=== PATIENT | female | born 1945 | race Caucasian/White ===

== ENCOUNTER → 2016-05-14 | Day surgery (SDC) | payer BC, MEDICARE ==
[~2016-05-14] VITALS: Ht 161.3 cm; Wt 86.3 kg
[~2016-05-14] MED LIST: AVAPRO300 MG PO; COLACE100 MG PO; CPAP INH; CRESTOR10 MG PO; DILAUDID 2MG(HYD2 MG PO; HYDROCHLOROTH12.5 MG PO; KLONOPIN1 MG PO; LEVOTHROID(SYN75 MCG PO; MIRALAX17 GM PO; NORVASC2.5 MG PO; OSCAL + D500 MG PO; PROTONIX20 MG PO; RITALIN SR 20MG20 MG PO; THERA-VITE W/ B1 TAB PO; TYLENOL EXTRA500 MG PO; ULTRAM50 MG PO; VALIUM5 MG PO; XARELTO10 MG PO; ZOLOFT100 MG PO
== END ==
LOC: GPOC 05-10 15:00 → GEND 08:29 → GPOC 09:00
PROC: 0DB68ZX Excision of Stomach, Via Natural or Artificial Opening Endoscopic, Diagnostic (ICD-10-PCS; principal; 2016-05-14)
DX: R10.13 Epigastric pain (principal); R11.0 Nausea; I10 Essential (primary) hypertension; F33.9 Major depressive disorder, recurrent, unspecified; F15.10 Other stimulant abuse, uncomplicated; K31.9 Disease of stomach and duodenum, unspecified
CPT/HCPCS: J2001; J7030

== ENCOUNTER 2016-07-02 08:00 | Inpatient (IN) | payer BC, MEDICARE ==
[~2016-07-02] VITALS: Ht 161.3 cm; Wt 88.7 kg
--- NOTE | ~2016-07-02 | OR ---
PATIENT'S NAME: NANDO KELSEY [facility] AGE: 71 Y [address] ROOM: [place] [address] LOCATION: [facility] ADMIT DATE: 07/15/2016 OR/Procedure Report DISCHARGE DATE: FAMILY PHYSICIAN: DARIEL JIMENEZ MD ATTENDING PHYSICIAN: LEXIS HAWKINS SURGEON: Lexis Hawkins MD LINK KNITTING MACHINE OPERATOR: Joey Ramírez PA-C and Cali Frank CST/FRUIT DRYER. DATE OF PROCEDURE: 07/15/2016 PRE-OP DIAGNOSIS: 1. Degenerative joint disease, right knee. 2. Retained hardware in right knee (ligament staple at medial femoral epicondyle). POST-OP DIAGNOSIS: 1. Degenerative joint disease, left knee. 2. Retained hardware in right knee (ligament staple at medial femoral epicondyle). OPERATION: 1. Bilateral total knee arthroplasty with computer navigation. 2. Removal of hardware (removal of a portion of ligament staple in right distal femur). ANESTHESIA: Spinal anesthesia plus bilateral femoral nerve blocks plus periarticular local anesthesia (Exparel). ESTIMATED BLOOD LOSS: Less than 10 mL (each side). DRAIN: None. SPECIMEN: None. COMPLICATIONS: None. IMPLANT SYSTEM: [place] [employer]. Size 3 posterior stabilized femoral components bilaterally. Size 3 universal modular tibial base plates bilaterally. A 13-mm size 3 X3 tibial polyethylene insert on the right. An 11 mm posterior stabilized size three X3 tibial polyethylene insert on the left. A 29-mm oval X3 patellar components bilaterally. INDICATIONS FOR SURGERY: Nando Kelsey is a 71-year-old female, who presents with PATIENT'S NAME: NANDO KELSEY [facility] AGE: 71 Y [address] ROOM: [place] [address] LOCATION: [facility] ADMIT DATE: 07/15/2016 OR/Procedure Report DISCHARGE DATE: FAMILY PHYSICIAN: DARIEL JIMENEZ MD ATTENDING PHYSICIAN: LEXIS HAWKINS advanced right knee degenerative joint disease and associated severely compromised activities of daily living. The patient has decided to proceed with bilateral knee replacement after having been thoroughly counseled regarding the associated risks, benefits, and limitations. We have specifically reviewed the risks and implications of infection, deep venous thrombosis, pulmonary embolism, mortality, neurovascular complications, blood transfusion (and associated potential for disease transmission or transfusion reaction), stiffness, instability, mechanical deterioration of the components (due to wear and or loosening), and the potential need for revision. We have also emphasized the importance of active involvement and compliance with post- operative physical therapy as a means of optimizing range of motion and functional recovery. Informed consent has been granted. We have also reviewed potential increased risks associated with bilateral (as opposed to staged) knee replacements including increased risk of requiring blood transfusion as well as the potential increased risk of mortality, deep venous thrombosis, and/or fat embolism syndrome. The patient has chosen to accept these potential increased risks. DESCRIPTION OF PROCEDURE: The patient was positioned supine after administration of anesthesia and prophylactic antibiotics. A well-padded pneumatic tourniquet was placed around both proximal thighs, and both lower extremities were prepped and draped with vigilant sterile technique. The patient's name as well as the intended procedure were confirmed with a verbal time-out involving myself, the circulating nurse, the scrub nurse, and the anesthesiologist. Attention was first focused on the right lower extremity. Examination under anesthesia demonstrated a well-healed curvilinear long medial arthrotomy scar. This was utilized to approach the knee. Care was taken to elevate the anterior skin flap in a full-thickness fashion. Non-absorbable suture was noted in the medial retinaculum. There was a moderate effusion. There were no active skin lesions or masses. There was no erythema. There was no abnormal warmth. Range of motion under anesthesia was from a 5-degree flexion contracture to 105 degrees of flexion. There was no ligamentous insufficiency. The right lower extremity was elevated and exsanguinated with an Esmarch wrap, and the pneumatic tourniquet was inflated to 300 mm. The knee was approached through a longitudinal midline incision. A medial parapatellar arthrotomy was performed and the patella was everted. Examination of the joint space demonstrated extensive non-resorbable suture material in the medial retinaculum. There was significant fibrosis of the infrapatellar fat pad. There were dense adhesions in the suprapatellar pouch as well as the medial and lateral gutters. There were also multiple non- resorbable sutures in the intercondylar notch and within the remnant of the PATIENT'S NAME: [facility] AGE: 71 Y [address] ROOM: [address] [place], [place] [address] LOCATION: [facility] ADMIT DATE: 07/15/2016 OR/Procedure Report DISCHARGE DATE: FAMILY PHYSICIAN: DARIEL JIMENEZ MD ATTENDING PHYSICIAN: LEXIS HAWKINS posterior cruciate ligament. The sutures were traced to where they penetrated through the medial aspect of the intercondylar notch in the vicinity of the posterior cruciate ligament origin. There was a 1-cm osseous fragment adherent to fibrous tissue in the suprapatellar pouch. There was full- thickness loss of articular cartilage involving 90% of the lateral facet of the patella, as well as 50% of the femoral trochlea, and a 1-cm diameter region of the medial femoral condyle. In addition, there was full-thickness loss of articular cartilage involving 60% of the lateral femoral condyle, and 90% of the lateral tibial plateau. There was a small degenerative peripheral remnant of the lateral meniscus. There was moderate inner perimeter tearing of the medial meniscus. Remnants of the menisci and cruciate ligaments were excised. The [employer] computer navigation femoral tracker was secured in place at the distal aspect of the femoral trochlea with three pins. Absence of motion between the femur and the tracking device was confirmed manually and visually. Femoral osseous landmarks were obtained in order to calibrate the computer navigation system. Landmarks included the center of rotation of the ipsilateral hip, the center- point of the distal femur, the vertical bisector of the femoral trochlea, 20 points on the medial femoral condyle articular surface, and 20 points on the lateral femoral condyle articular surface. The [employer] computer navigation system was subsequently utilized to position the distal femoral resection block such that the distal femoral resection was performed perfectly perpendicular to the femoral mechanical axis. The distal femoral resection was performed with a [employer] Precision oscillating saw. The [employer] computer navigation tibial tracker was secured in place at the anterior aspect of the tibial plateau with three points. Absence of motion between the tibia and the tracking device was confirmed manually and visually. Tibial osseous landmarks were obtained in order to calibrate the computer navigation system. Landmarks included the center-point of the tibial plateau, the sagittal bisector of the tibial plateau, 20 points on the medial tibial plateau articular surface, 20 points on the lateral tibial plateau articular surface, the medial malleolus, and the lateral malleolus. The [employer] computer navigation system was subsequently utilized to position the proximal tibial resection block such that the proximal tibial resection was performed perfectly perpendicular to the tibial mechanical axis. The proximal tibial resection was performed with a [employer] Precision oscillating saw. Perpendicularity of the tibial resection with respect to the tibial shaft axis was reconfirmed by inserting a spacer-block attached to an extramedullary guide peg. External rotation of the anterior and posterior femoral resections was set parallel to the epicondylar axis and carefully adjusted in order to create a rectangular flexion gap. The box resection was performed with a reciprocating PATIENT'S NAME: NANDO KELSEY [facility] AGE: 71 Y [address] ROOM: [address] [address] LOCATION: [facility] ADMIT DATE: 07/15/2016 OR/Procedure Report DISCHARGE DATE: FAMILY PHYSICIAN: DARIEL JIMENEZ MD ATTENDING PHYSICIAN: LEXIS HAWKINS. Anterior and posterior chamfer resections were performed with the oscillating saw. Posterior condyle osteophytes were excised with an osteotome. All other osteophytes were excised with a rongeur. Resection of all remnants of the menisci was reconfirmed. Flexion and extension gaps were confirmed to be symmetric and well balanced with a spacer-block technique. The patella resection was performed with an oscillating saw such that the composite thickness of the reconstructed patella was equivalent to the thickness of the [place] patella. Patella tracking was confirmed to be optimal. A limited lateral retinacular release was required for patellar tracking, as well as to optimize patellar tracking. All trial components were removed and all prepared osseous surfaces were thoroughly irrigated with pulsatile saline lavage and dried prior to cementing all three components in a single stage using Agr[employer] Simplex cement containing pre-mixed tobramycin. All extruded excess cement was removed. The entire joint space was thoroughly inspected and thoroughly irrigated with bacteriostatic pulsatile saline lavage to assure that there was no residual debris of any sort. Final range of motion was from full extension to 130 degrees of flexion. Patella tracking was reconfirmed to be optimal. There was excellent anteroposterior stability at 90 degrees of flexion. There was 1 mm of medial lift-off to valgus stress in full extension. There was 0 mm of lateral lift- off to varus stress in full extension. The arthrotomy was closed with multiple simple and [id number]-[id number] interrupted #1 Vicryl and #0 Vicryl sutures. Subcutaneous tissues were thoroughly re- irrigated with bacteriostatic pulsatile saline lavage. Subcutaneous tissues were re-approximated with simple buried interrupted #0 Vicryl sutures followed by surgical ihsan. The dressing consisted of Xeroform gauze, 4 x 4 gauze, ABD pads and two 6-inch Abdirashid Wraps. There were no intra-operative complications. Attention was next focused on the left lower extremity. Examination under anesthesia demonstrated no active skin lesions or masses. There were well- healed arthroscopy portal scars. There was a moderate effusion. There was no erythema. There was no abnormal warmth. Range of motion under anesthesia was from a 2-degree flexion contracture to 125 degrees of flexion. There was no ligamentous insufficiency. The left lower extremity was elevated and exsanguinated with an Esmarch wrap, PATIENT'S NAME: NANDO KELSEY [facility] AGE: 71 Y [address] ROOM: [address] [address] LOCATION: [facility] ADMIT DATE: 07/15/2016 OR/Procedure Report DISCHARGE DATE: FAMILY PHYSICIAN: DARIEL JIMENEZ MD ATTENDING PHYSICIAN: LEXIS HAWKINS and the pneumatic tourniquet was inflated to 300mm. The knee was approached through a longitudinal midline incision. A medial parapatellar arthrotomy was performed and the patella was everted. Examination of the joint space demonstrated a moderate amount of benign-appearing translucent synovial fluid. The anterior cruciate ligament was intact, but attenuated. The posterior cruciate ligament was intact. There was extensive fibrosis of the infrapatellar fat pad. There was a large osteophyte at the medial femoral condyle. There were intermixed grade 3 and grade 4 degenerative changes throughout the medial femoral condyle. There was extensive high-grade partial- thickness articular cartilage loss throughout the medial tibial plateau, and there was full-thickness fissuring at the medial tibial plateau. There was widespread grade 2 chondromalacia at the lateral femoral condyle. There were moderate grade 3 degenerative changes involving a 1.5-cm diameter region of the central aspect of the lateral femoral condyle. There was a 1.5-cm diameter region of full-thickness articular cartilage loss at the lateral facet of the patella. There was an 8-mm diameter mobile osteophyte fragment at the superolateral margin of the patella. There was a moderate-sized osteophyte at the lateral aspect of the femoral trochlea. There was moderate inner perimeter tearing at both the medial and lateral menisci. Remnants of the menisci and cruciate ligaments were excised. The [employer] computer navigation femoral tracker was secured in place at the distal aspect of the femoral trochlea with three pins. Absence of motion between the femur and the tracking device was confirmed manually and visually. Femoral osseous landmarks were obtained in order to calibrate the computer navigation system. Landmarks included the center of rotation of the ipsilateral hip, the center- point of the distal femur, the vertical bisector of the femoral trochlea, 20 points on the medial femoral condyle articular surface, and 20 points on the lateral femoral condyle articular surface. The [employer] computer navigation system was subsequently utilized to position the distal femoral resection block such that the distal femoral resection was performed perfectly perpendicular to the femoral mechanical axis. The distal femoral resection was performed with a [employer] Precision oscillating saw. The [employer] computer navigation tibial tracker was secured in place at the anterior aspect of the tibial plateau with three pins. Absence of motion between the tibia and the tracking device was confirmed manually and visually. Tibial osseous landmarks were obtained in order to calibrate the computer navigation system. Landmarks included the center-point of the tibial plateau, the sagittal bisector of the tibial plateau, 20 points on the medial tibial plateau articular surface, 20 points on the lateral tibial plateau articular surface, the medial malleolus, and the lateral malleolus. The [employer] computer navigation system was subsequently utilized to position the proximal tibial resection block such that the proximal tibial resection was performed perfectly perpendicular to the tibial mechanical axis. The proximal tibial PATIENT'S NAME: NANDO KELSEY [facility] AGE: 71 Y [address] ROOM: [address] [address] LOCATION: [facility] ADMIT DATE: 07/15/2016 OR/Procedure Report DISCHARGE DATE: FAMILY PHYSICIAN: DARIEL JIMENEZ MD ATTENDING PHYSICIAN: LEXIS HAWKINS resection was performed with a [employer] Precision oscillating saw. Perpendicularity of the tibial resection with respect to the tibial shaft axis was reconfirmed by inserting a spacer-block attached to an extramedullary guide peg. External rotation of the anterior and posterior femoral resections was set parallel to the epicondylar axis and carefully adjusted in order to create a rectangular flexion gap. The box resection was performed with a reciprocating saw. Anterior and posterior chamfer resections were performed with the oscillating saw. Posterior condyle osteophytes were excised with an osteotome. All other osteophytes were excised with a rongeur. Resection of all remnants of the menisci was reconfirmed. Flexion and extension gaps were confirmed to be symmetric and well balanced with a spacer-block technique. The patella resection was performed with an oscillating saw such that the composite thickness of the reconstructed patella was equivalent to the thickness of the kaltag patella. Patella tracking was confirmed to be optimal. Patellar tracking was optimal, and there was no need for a lateral retinacular release. All trial components were removed and all prepared osseous surfaces were thoroughly irrigated with pulsatile saline lavage and dried prior to cementing all three components in a single stage using A[employer] Simplex cement containing pre-mixed tobramycin. All extruded excess cement was removed. The entire joint space was thoroughly inspected and thoroughly irrigated with bacteriostatic pulsatile saline lavage to assure that there was no residual debris of any sort. Final range of motion was from full extension to 130 degrees of flexion. Patella tracking was reconfirmed to be optimal. There was excellent anteroposterior stability at 90 degrees of flexion. There was less than 1 mm of medial lift-off to valgus stress in full extension. There was less than 1 mm of lateral lift-off to varus stress in full extension. The arthrotomy was closed with multiple simple and [id number] interrupted #1 Vicryl and #0 Vicryl sutures. Subcutaneous tissues were thoroughly re- irrigated with bacteriostatic pulsatile saline lavage. Subcutaneous tissues were re-approximated with simple buried interrupted #0 Vicryl sutures. The skin was closed with simple buried interrupted 2-0 Vicryl sutures followed by surgical ihsan. The dressing consisted of Xeroform gauze, 4 x 4 gauze, ABD pads and two 6-inch Abdirashid Wraps. There were no intra-operative complications. PATIENT'S NAME: NANDO KELSEY [facility] AGE: 71 Y [address] ROOM: [address] [address] LOCATION: [facility] ADMIT DATE: 07/15/2016 OR/Procedure Report DISCHARGE DATE: FAMILY PHYSICIAN: DARIEL JIMENEZ MD ATTENDING PHYSICIAN: LEXIS HAWKINS It should be noted that the physician's commercial lines account assistant played an active, integral role throughout this entire operation. By providing expert retraction, they greatly facilitated and expedited safe and effective exposure of the distal femur, proximal tibia and patella for preparation and implantation of the components. They were also actively involved in the patient's positioning, prepping and draping, as well as wound closure. MD YISSEL KENNEY/juanl /[id number] d: 07/16/16 0258 t: 07/25/16 2222, OPERATIVE SUMMARY
--- NOTE | ~2016-07-02 | DS ---
PATIENT'S NAME: NANDO ZAPATA [facility] AGE: 71 Y [address] ROOM: [place] [address] LOCATION: [facility] ADMIT DATE: 07/15/2016 Discharge Summary DISCHARGE DATE: 07/18/2016 FAMILY PHYSICIAN: Binh Canales MD ATTENDING PHYSICIAN: Lb Corrigan PRIMARY DIAGNOSIS: Degenerative joint disease of the right knee. SECONDARY DIAGNOSIS: Include: 1. History of gastrointestinal bleed. 2. Hyperlipidemia. 3. Hypertension. 4. Hypothyroidism. 5. Obstructive sleep apnea with CPAP. 6. Depression. 7. Restless legs syndrome. 8. Urinary stress incontinence. PROCEDURE PERFORMED: 1. Bilateral total knee arthroplasty with computer navigation. 2. Removal of hardware (removal of a portion of ligament staple in the right distal femur). HISTORY: The patient is a 71-year-old female, who presents with advanced right knee degenerative joint disease and associated severely compromised activities of daily living. The patient has decided to proceed with total knee arthroplasty after having been thoroughly counseled regarding the risks, benefits, limitations and alternatives. Please refer to the outpatient clinic notes and admission history and physical for this patient. HOSPITAL COURSE: The patient underwent a right total knee arthroplasty on 07/15/2016 without complications. Spinal anesthesia plus bilateral femoral nerve blocks plus periarticular local anesthesia was utilized. The patient received 24 hours of perioperative prophylactic antibiotics and remained hemodynamically stable, neurovascularly intact throughout the entire hospital course. The postoperative prophylactic deep venous thrombosis prophylaxis consisted of Xarelto 10 mg, early mobilization and pneumatic compression devices. Daily physical therapy for gait training, transfer training range of motion and quadriceps isometric exercises were received. The patient progressed well in physical therapy. On the date of discharge, 07/18/2016, the incision at the knee was healing well and showed no signs of infection. DISPOSITION: Home. DISCHARGE ACTIVITY: The patient is to bear weight as tolerated with range of PATIENT'S NAME: NANDO ZAPATA [facility] AGE: 71 Y [address] ROOM: [place] [address] LOCATION: [facility] ADMIT DATE: 07/15/2016 Discharge Summary DISCHARGE DATE: 07/18/2016 FAMILY PHYSICIAN: Binh Canales MD ATTENDING PHYSICIAN: Lb Corrigan motion and quadriceps isometric exercises as instructed. The operative extremity is to be elevated at least 90% of the day. There is to be sterile 4x4 gauze dressings to the incision daily. Dr. Corrigan is to be notified immediately if there is any increased pain, fevers, chills erythema or drainage. Hold range of motion, bilateral knees, until followup visit. DISCHARGE MEDICATIONS: Include: 1. Xarelto 10 mg, take one tab p.o. daily for DVT prevention. 2. Valium 5 mg, take 1/2 tablet to one tab every 6 hours as needed for muscle spasms. 3. Dilaudid 2 mg, take 1-2 tablets p.o. every 4 hours as needed for pain. FOLLOWUP: Followup appointment is to be with Dr. Corrigan on July 22, 2016, for initial postoperative evaluation with x-rays and for staple removal. JILL PITT FOR MD SUSAN KENNEY/juanl /[id number] d: 08/02/168 t: 08/06/16 1512, DISCHARGE SUMMARY
--- NOTE | ~2016-07-02 | CON ---
PATIENT'S NAME: NANDO ZAPATA [facility] AGE: 71 Y [address] ROOM: [place] [address] LOCATION: [facility] ADMIT DATE: 07/15/2016 Consultation DISCHARGE DATE: FAMILY PHYSICIAN: DARIEL JIMENEZ MD ATTENDING PHYSICIAN: LEXIS HAWKINS DATE OF CONSULTATION: 07/15/2016 REFERRING PHYSICIAN: Lexis Hawkins MD CONSULTING PHYSICIAN: Dr. Akhtar. REASON FOR CONSULTATION: Medical management. HISTORY OF PRESENT ILLNESS: The patient is a 71-year-old female who is postop day 0 for bilateral total knee arthroplasties. Surgery was uneventful and at this point the patient has no complaints. She denies any chest pain, shortness of breath, nausea, vomiting, and her pain is adequately controlled with current opioid regimen. REVIEW OF SYSTEMS: All systems have been reviewed and are negative aside from pertinent positives mentioned above. PAST MEDICAL HISTORY: As reviewed from detailed medical records sent from Dr. Jimenez's office is that of: 1. Essential hypertension. 2. Severe depression. 3. History of GI bleed due to NSAID and aspirin use. 4. Obstructive sleep apnea, with CPAP dependent. 5. Degenerative joint disease. 6. History of a cardiac cath due to positive stress test, cardiac cath was negative. 7. Hyperlipidemia. CURRENT MEDICATIONS: 1. Aripiprazole 2 mg in the morning. 2. Hydrochlorothiazide 12.5. 3. Levothyroxine 75. 4. Calcium/vitamin-D. 5. Multivitamin. PATIENT'S NAME: NANDO ZAPATA [facility] AGE: 71 Y [address] ROOM: [place] [address] LOCATION: [facility] ADMIT DATE: 07/15/2016 Consultation DISCHARGE DATE: FAMILY PHYSICIAN: DARIEL JIMENEZ MD ATTENDING PHYSICIAN: LEXIS HAWKINS 6. Amlodipine 2.5 at bedtime. 7. Clonazepam 0.5 at bedtime as needed. 8. Crestor 10. 9. Irbesartan 300. 10. Sertraline 150. 11. Pantoprazole 20 b.i.d. SOCIAL HISTORY: Negative for any ongoing toxic habits. FAMILY HISTORY: Noncontributory due to known underlying etiology for her presentation. PHYSICAL EXAMINATION: VITAL SIGNS: Temperature 97.6, pulse is 74, respirations 24, blood pressure 128/57, and saturating 97% on 2 L nasal cannula. GENERAL: Appears as a well-developed and well-nourished middle-aged female, in no acute distress. NEUROLOGIC: Exam is nonfocal. EYES: Exam shows pupils are equal and reactive to light. LYMPHATICS: Exam shows no cervical lymphadenopathy. ENDOCRINE: Exam show no thyromegaly. LUNGS: Clear to auscultation. HEART: Rate is regular with no appreciable murmurs, gallops, or rubs. ABDOMEN: Soft, nontender, nondistended. : No costovertebral angle tenderness. VASCULAR: A 2+ pedal pulses. MUSCULOSKELETAL: Deferred. PSYCHIATRIC: Appropriate mood, cognition, and affect. SKIN: Warm and dry. IMPRESSION AND RECOMMENDATIONS: This is a 71-year-old female postop day 0 for bilateral total knee arthroplasty. Individual problems to be addressed as follows. 1. Hypertension. We will continue the patient's irbesartan and amlodipine. We will hold off for systolics under 110 given her current opioid regimen. Bowel regimen has been ordered. 2. Deep venous thrombosis prophylaxis as per Orthopedics. 3. Obstructive sleep apnea. Continue with CPAP. 4. Depression, severe, continue with her current home regimen. 5. Hypercholesterolemia, continue with statin. Additional management will depend on clinical course. We will follow the patient with you. Thank you for allowing us to participate in the care of this patient. Time dedicated to this patient encounter is 25 minutes. PATIENT'S NAME: NANDO ZAPATA [facility] AGE: 71 Y [address] ROOM: [address] [address] LOCATION: [facility] ADMIT DATE: 07/15/2016 Consultation DISCHARGE DATE: FAMILY PHYSICIAN: DARIEL JIMENEZ MD ATTENDING PHYSICIAN: LEXIS HAWKINS MD DANIAL GRIFFIN/myla /[id number] d: 07/16/16 0138 t: 08/01/16 0550, CONSULTATION REPORT
[~2016-07-02 08:00] MED LIST changes: -COLACE100 MG PO; -DILAUDID 2MG(HYD2 MG PO; -MIRALAX17 GM PO; -NORVASC2.5 MG PO; -OSCAL + D500 MG PO; -THERA-VITE W/ B1 TAB PO; -TYLENOL EXTRA500 MG PO; -VALIUM5 MG PO; -XARELTO10 MG PO
[2016-07-15] MEDS ORDERED: NORVASC2.5 MG PO (19:10)
[2016-07-15] MEDS ORDERED: THERA-VITE W/ B1 TAB PO (19:11)
[2016-07-15] MEDS ORDERED: OSCAL + D500 MG PO (19:11)
--- NOTE | 2016-07-16 04:03 | NUR ---
Patient alert and oriented x3, very pleasant and cooperative, dressings to bilateral knees clean dry and intact, csm with in normal limits, has been up to the commode twice with two assist and has done very well, had a 700ml emesis this evening after taking her evening meds, she stated she thinks she cant tolerated the miralax and that is made her vommitt has had no c/o of upset stomach prior to emesis or after, pain has been under control states the right knee hurts worse than the left, daughter at bedside
[2016-07-16 05:58] LABS: HEMATOCRIT 36.5 % (33.0-46.0)
--- NOTE | 2016-07-16 09:53 | NUR ---
Patient attended the preop joint class on 07/04/16. Indicated she lives with family in one level home. Has 4 steps to get in home with railing on right side. Has walk in shower. Has DME to include, walker, cane, elevated toilet seat, bath seat and hand held shower. Reports daughters will be available to help her after surgery. Will follow and assist as needs identified.
--- NOTE | 2016-07-16 10:00 | NUR ---
Introduces self/role to patient and daughter. Lives in [place], still work. She lives with her granddaughter. 2 daughters are nurse. Will have lots of help from family. Sister is coming down a day when her kids are busy. She has all the DME she needs accept maybe a grabber. We talked about where one could be purchased. Wrote my name on her marker board. Will continue to follow. Planning home tomorrow.
--- NOTE | 2016-07-16 16:16 | NUR ---
Significant Event: pt alert and oriented. up in the recliner this shift. pain issues this afternoon. dilaudid po given at 1514. valium given at 1220. iv diluadid given at 1228 and tylenol given at 1700. daughter in the the room with pt. ice to antonio knees. rt knee no rom. this knee is more painful than the lt. up with 1 assist. Follow up:
--- NOTE | 2016-07-17 04:13 | NUR ---
Significant Event: Dressings were clean, dry and intact. CSM WNL. 1 assist with transfers. CPAP. Dilaudid at 0305. Valium at 0003. Dilaudid IV at 2017. No ROM to R) knee. Voids without difficulty. Follow up:
--- NOTE | 2016-07-17 16:28 | NUR ---
Significant Event: pt alert and oriented. up with 1 assist pedro well. ice to antonio knees. takes diluadid for pain. valium at 0806 this am. tylemol at 1305. daughters in the room at intervals. lat dialudid at 1640 with tylenol. will go home tomorrow. Follow up:
--- NOTE | 2016-07-18 04:13 | NUR ---
Significant Event: Dressing to L) knee had shadow drainange scant to the gauze and a quarter sized drainage to the R) knee. MD notified and painted with betadine and changed the dressings. R) knee still has drainage to knee after the dressing change. No ROM to both legs. Xarelto to be held this AM. CSM WNL. 1 assist with transfers. Voids without difficulty. Dilaudid at 0138. CPAP. Follow up:
[2016-07-18] MEDS ORDERED: TYLENOL EXTRA500 MG PO (15:03)
[2016-07-18] MEDS ORDERED: COLACE100 MG PO (15:04)
[2016-07-18] MEDS ORDERED: MIRALAX17 GM PO (15:08)
[2016-07-18] MEDS ORDERED: XARELTO10 MG PO (15:09)
[2016-07-18] MEDS ORDERED: VALIUM5 MG PO (15:10)
[2016-07-18] MEDS ORDERED: DILAUDID 2MG(HYD2 MG PO (15:13)
== END 2016-07-18 19:10 | disposition disaster alternative care site (69) | DRG 462 ==
LOC: G3N 07-15 09:31
PROVIDERS: ADMIT Orthopaedic Surgery
DX: M17.0 Bilateral primary osteoarthritis of knee (principal); I10 Essential (primary) hypertension; F32.9 Major depressive disorder, single episode, unspecified; G47.33 Obstructive sleep apnea (adult) (pediatric); E78.5 Hyperlipidemia, unspecified; G25.81 Restless legs syndrome; E03.9 Hypothyroidism, unspecified; N39.3 Stress incontinence (female) (male)
CPT/HCPCS: C1713; C1776; C9290; J0690; J1100; J1170; J2250; J2405; J3010; J7120

== ENCOUNTER → 2016-07-04 | Outpatient (CLI) | payer BC ==
[~2016-07-04] MED LIST changes: +COLACE100 MG PO; +DILAUDID 2MG(HYD2 MG PO; +MIRALAX17 GM PO; +NORVASC2.5 MG PO; +OSCAL + D500 MG PO; +THERA-VITE W/ B1 TAB PO; +TYLENOL EXTRA500 MG PO; +VALIUM5 MG PO; +XARELTO10 MG PO
== END | disposition disaster alternative care site (69) ==
LOC: GNJRC 10:18
DX: Z01.812 Encounter for preprocedural laboratory examination (principal); M17.11 Unilateral primary osteoarthritis, right knee; M17.12 Unilateral primary osteoarthritis, left knee

== ENCOUNTER → 2016-07-11 | Outpatient (CLI) | payer BC, MEDICARE ==
--- NOTE | ~2016-07-11 | ESTC ---
Cardiac Perfusion Imaging Demographics Patient Name BENNY Hankins Gender Female Patient Number [id number] Race Visit Number [id number] Ethnicity Corporate ID Room Number Accession Number [id number] Height 63 inches Date of 1945 Weight 193 pounds Interpreting Jacky Gibbons Date of study 07/11/2016 Physician Supervising /ESTUARDOP Jacky Gibbons NM Technologist Ordering Physician Jacky Gibbons Stress platform power technician Stress ECG Reading Jacky Gibbons Nurse Shane Jonas Physician RN Medications Reviewed with Patient prior to Procedure. Procedure Procedure Type: Nuclear Stress Test:Cardiolite Stress Test Procedure Start time: 07/11/2016 00:00 Indications: Chest pain and abnormal rest ECG. Risk Factors The patient risk factors include:hypercholesterolemia, hypertension and dyslipidemia. Conclusions Summary No TID. Normal perfusion images. LVEF:83%. Normal WM. Stress Protocols Resting ECG RSR. Pre-stress physical exam: Un changed. Predicted HR: 150 bpm ECG Findings No ECG changes suggestive of ischemia. Arrhythmias Occasional PVC. Symptoms SOB. Fluttering. Stress Interpretation Lexiscan cardiolite with normal hemodynamic response. No chest pain. SOB with fluttering in chest. No EKG changes of ischemia. Occasional PVC. Imaging Results Applied corrections - Motion correction applied High risk findings Summed scores - Summed stress score: 15 - Summed rest score: 7 - Summed difference score: 8 Stress ejection Ejection fraction:83 % EDV :78 ml ESV :13 ml Stroke volume :65 ml LV mass :113 gr LV size:Normal Normal LV function Imaging Protocols Rest Stress Isotope:Tc99m Sestamibi IV Isotope: Tc99m Sestamibi IV Isotope dose:13.3 mCi Isotope dose:42 mCi Date:07/11/2016 07:05 Date:07/11/2016 08:52 Technique: SPECT Technique: Gated Supine SPECT Supine Scan Time:45-60 minutes post Scan Time:45-60 minutes post injection injection Procedure Medications - Regadenoson (Lexiscan) 0.4 mg IV over 10-15 sec. I.V. 0.4 mg. Medical History Admission Data Admission date: 07/11/2016 Admission Time: 06:40 Hospital Status: Outpatient. Signatures dtt: Edwige Rico dtd: 07/11/16 0000 Physician Self Edit
--- NOTE | ~2016-07-11 | ECHO ---
Transthoracic Echocardiography Report (TTE) Demographics Patient Name NANDO ZAPATA Date of Study 07/11/2016 Patient Number [id number] Visit Number [id number] Date of 1945 Room Number Gender Female Number Age 71 year(s) Referring Jacky Gibbons Cover Seamer Martha Edwards Physician MD Grant Ludwig [facility], Ally Purcell RVT Physician Interpreting Jacky Gibbons Tobacco Dipper Physician Supervising Ordering Jacky Gibbons MD/MLP Physician Nurse Stress Grain Origination Specialist Conclusions Contractility Score Summary Normal Left Ventricular contractility was noted. Summary The estimated left ventricular ejection fraction is 60% with normal WM.The left ventricle is normal in size .Normal LV wall thickness. Trivial MR. Mild tricuspid regurgitation by color Doppler. Trivial NE. Procedure Type of Study TTE procedure:2D Echocardiogram, M-Mode, Doppler , Color Doppler. Procedure Date Date: 07/11/2016 Start: 09:16 AM Study Location: Inpatient Portable Technical Quality: Adequate visualization Indications:Chest pain, Abnormal ECG and pre surgical clearance. Appropriate Use Criteria: 9 Patient Status: Routine HR: 67 bpm BP: 171/76 mmHg M-Mode/2D Measurements LV Diastolic Dimension: 4.32 cm LV Systolic Dimension: 2.65 cm LV Septum Diastolic: 1.04 cm LV PW Diastolic: 0.86 cm AO Root Dimension: 2.8 cm Cardiac Output: 5.39 l/min AV Cusp Separation: 2.4 cm RV Diastolic Dimension: 2.89 cm LA volume: 42 ml LVOT: 2 cm RV Base: 3.8 cm LVOT VTI: 25.6 cm RV Mid: 3.2 cm LV Stroke volume: 80.38 ml TAPSE: 2.1 cm TDI-S': 14.6 cm/s Doppler Measurements AV Peak Velocity: 0.89 m/s MV Peak E-Wave: 0.7 m/s AV Peak Gradient: 3.19 mmHg MV Peak A-Wave: 1.1 m/s AV Mean Gradient: 2 mmHg MV E/A Ratio: 0.63 LVOT Peak Velocity: 0.92 m/s MV P1/2t: 82 msec TR Gradient:28.94 mmHg PV Peak Velocity: 0.78 m/s Estimated RAP:3 mmHg PV Peak Gradient: 2.43 mmHg Estimated RVSP: 32 mmHg Estimated PASP: 31.94 mmHg E' Septal Velocity: 0.06 m/s A' Septal Velocity: 0.12 m/s E' Lateral Velocity: 0.09 m/s A' Lateral Velocity: 0.14 m/s Findings Left Ventricle The left ventricle is normal in size with normal wall thickness,EF and WM. Right Ventricle Normal right ventricle structure and function. Left Atrium Normal left atrial size. Right Atrium Normal right atrial size. Mitral Valve Trivial mitral regurgitation by color Doppler. Aortic Valve Normal aortic valve structure and function. Tricuspid Valve Mild tricuspid regurgitation by color Doppler. Pulmonic Valve Trivial pulmonic valve regurgitation by color Doppler. Pericardial Effusion No evidence of pericardial effusion. Miscellaneous Visualized portions of the aortic root and ascending aorta appear normal in size. Pleural Effusion No evidence of pleural effusion. Contractility Score LV regional wall motion:(0-Non visualized 1-Normal 2-Hypokinesis 3-Akinesis 4-Dyskinesis 5-Aneurysm) Signature dtt: Edwige Rico dtd: 07/11/16 0916 Physician Self Edit
== END | disposition disaster alternative care site (69) ==
LOC: GRAD 06:40
DX: Z01.810 Encounter for preprocedural cardiovascular examination (principal); E78.00 Pure hypercholesterolemia, unspecified; E78.5 Hyperlipidemia, unspecified; I07.1 Rheumatic tricuspid insufficiency
CPT/HCPCS: A9500; J2785